=== PATIENT | female | born 1995 | race Caucasian/White ===

== ENCOUNTER → 2019-08-08 | Outpatient (CLI) | payer BC, OTHER ==
[~2019-08-08] MED LIST: CEFP500T4 PO; TRIA16.5 NS
--- NOTE | 2019-08-08 16:19 | Diagnostic Imaging Report ---
INDICATION: Migraine headaches. TECHNIQUE: MRI brain obtained without IV contrast. FINDINGS: Diffusion-weighted images demonstrate no areas of diffusion signal abnormality to suggest acute ischemic change. There are no extra-axial fluid collections. No intracranial hemorrhage. No intracranial mass or mass effect. No midline shift. The ventricles are normal in size and position. There are no focal parenchymal abnormalities in the brain. There is no significant white matter disease. Visualized portions of the paranasal sinuses are clear. There is no orbital lesion seen. Mastoid air cells are well aerated. The brainstem and posterior fossa appear unremarkable. There is no evidence of Chiari malformation. Corpus callosum appears normal. IMPRESSION: Negative MRI brain without contrast. Dictated by: Dictated on workstation # [id number]
== END ==
LOC: RAD 15:29
PROVIDERS: ATTEND Psychiatry & Neurology Neurology
DX: G43.709 Chronic migraine without aura, not intractable, without status migrainosus (principal)
CPT/HCPCS: 70551

== ENCOUNTER → 2021-02-11 | Outpatient (CLI) | payer BC ==
--- NOTE | 2021-02-11 11:04 | Diagnostic Imaging Report ---
INDICATION: survey. TECHNIQUE: Multiple real-time grayscale images were obtained over the gravid uterus. COMPARISON: None FINDINGS: There is a single live fetus in a cephalic presentation. heart rate was recorded at 139 bpm. Placenta is anterior. Amniotic fluid volume is normal. Cervical length is 5.4 cm. kidneys, bladder and stomach are unremarkable. brain is unremarkable. There is a four-chamber heart. There is a three-vessel cord with normal insertion. spine is unremarkable. Biometrical measurements are as follows: Biparietal 4.49 cm, age 19 weeks 5 days. Head circumference 16.64 cm, age 19 weeks 3 days. Abdominal circumference 14.94 cm, age 20 weeks 2 days. Femur length 3.23 cm, age 20 weeks 1 days. Sonographic estimate age: 20 weeks 2 days. Sonographic estimated date of delivery: 07/01/2021. Estimated Weight: 328 gm (+/- 48 gm). LMP percentile: 56%. heart rate: 139 beats per minute. number: 1 of 1. IMPRESSION: Single live IUP 20 weeks 2 days gestational age. Estimated date of confinement sonographically is 07/01/2021. No complicating features are detected. Dictated by: Dictated on workstation # [id number]
== END ==
LOC: RAD 10:00
PROVIDERS: ATTEND Nurse Practitioner Women's Health
DX: Z34.02 Encounter for supervision of normal first pregnancy, second trimester (principal); Z3A.20 20 weeks gestation of pregnancy
CPT/HCPCS: 76805

== ENCOUNTER 2021-07-01 21:24 | Inpatient (IN) | payer BC ==
[~2021-07-01] VITALS: Ht 157 cm; Wt 106.3 kg
[2021-07-01] MEDS ORDERED: PREN-8 PO (21:36)
[2021-07-01] MEDS ORDERED: FERR-84 PO (21:36)
[2021-07-01] MEDS ORDERED: MAGN400T7 PO (21:36)
[2021-07-01 21:53] VITALS: BP 125/80
[2021-07-01 21:56] VITALS: BP 125/80
[2021-07-01 21:59] LABS: BILIRUBIN,URINE NEGATIVE (NEGATIVE); CLARITY,URINE CLEAR; COLOR,URINE YELLOW; GLUCOSE, URINE (UA) NEGATIVE (NEGATIVE); KETONES,URINE NEGATIVE (NEGATIVE); LEUKOCYTE ESTERASE ,URINE TRACE (NEGATIVE); NITRITE,URINE NEGATIVE (NEGATIVE); PROTEIN,URINE NEGATIVE (NEGATIVE)
[2021-07-01 22:15] LABS: BACTERIA,URINE MODERATE /HPF; SQUAMOUS EPITHELIAL CELL,UR RARE /HPF; WBC,URINE 0-2 /HPF
[2021-07-01] MEDS ORDERED: D5 LR IV SOLUTION 1,000 ML IV ONE (22:42)
[2021-07-01] MEDS ORDERED: LIDOCAINE/EPI 2% 1:200,00 (XYLOCAINE) 20 ML VIAL INJ PRN (22:45)
[2021-07-01] MEDS: D5 LR IV SOLUTION 1,000 ML IV SCH (23:00)
[2021-07-01 23:09] LABS: BASOPHILS % (AUTO) 0 % (0-10); EOSINOPHILS # (AUTO) 0.1 10^3/uL (0.0-0.3); EOSINOPHILS % (AUTO) 1 % (0-10); HEMATOCRIT 34 % (35-52); HEMOGLOBIN 11.7 g/dL (11.5-16.0); LYMPHOCYTES # (AUTO) 1.6 10^3/uL (1.0-4.0); LYMPHOCYTES % (AUTO) 15 % (12-44); MEAN CORPUSCULAR HEMOGLOBIN 30 pg (25-34); MEAN CORPUSCULAR HGB CONC 34 g/dL (32-36); MEAN CORPUSCULAR VOLUME 88 fL (80-99); MEAN PLATELET VOLUME 10.4 fL (9.0-12.2); MONOCYTES # (AUTO) 0.6 10^3/uL (0.0-1.0); MONOCYTES % (AUTO) 5 % (0-12); NEUTROPHILS # (AUTO) 8.7 10^3/uL (1.8-7.8); NEUTROPHILS % (AUTO) 79 % (42-75); PLATELET COUNT 198 10^3/uL (130-400)
[2021-07-02] VITALS (80 sets, daily range): BP systolic 98–139; BP diastolic 59–83
[2021-07-02] MEDS ORDERED: fentaNYL 2 mcg/ml BUPIVA 0.125 100 ML ONE (00:26)
[2021-07-02] MEDS ORDERED: diphenhydrAMINE 50 MG/ML INJ (BENADRYL) IV PRN (01:15)
[2021-07-02] MEDS ORDERED: NALOXONE 0.4 MG/ML 1 ML (NARCAN) VIAL IV PRN ×3 (01:15→16:15)
[2021-07-02] MEDS ORDERED: ONDANSETRON 4 MG/2 ML (SDV) Z0FRAN IV PRN (01:15)
[2021-07-02] MEDS ORDERED: LACTATED RINGERS 1,000 ML IV SCH (01:15)
[2021-07-02] MEDS ORDERED: METOCLOPRAMIDE INJ 10 MG/2 ML (REGLAN) IV PRN (01:15)
[2021-07-02] MEDS: EPIDURAL (fentaNYL 2 MCG/ML BUPIVA 0.125%)100 ML BAG EPI SCH ×2 (02:06→09:00)
[2021-07-02] MEDS: CATHETER FLUSH 10 ML SYR IV SCH (06:00)
[2021-07-02] MEDS: D5 LR IV SOLUTION 1,000 ML IV SCH (07:08)
[2021-07-02] MEDS ORDERED: OXYTOCIN PRE-MIX DRIP 500 ML IV ONE (07:57)
[2021-07-02] MEDS ORDERED: LIDOCAINE/EPI 2% 1:200,00 (XYLOCAINE) 10 ML VIAL ONE (08:04)
--- NOTE | 2021-07-02 08:51 | History & Physical-OB ---
OB - Chief Complaint & HPI Date/Time Date of Admission: Date of Admission: Jul 01, 2021 at 10:37 pm Date seen by a Provider: Jul 02, 2021 Time Seen by a Provider: 08:05 Chief Complaint/History OB-Reason for Admission/Chief: Onset of Labor Hx : 1 Hx Para: 0 Expected Date of Delivery: Jul 02, 2021 Gestational Age in Weeks: 39 Gestational Age in Days: 6 Admission Nurse Assessment Rev: Yes History of Labs O pos Antibody neg RI RPR NR HBsAg NR HIV NR GC neg GBS neg Allergies and Home Medications Allergies Coded Allergies: No Known Drug Allergies (Unverified , 07/11/11) Patient Home Medication List Home Medication List Reviewed: Yes Ferrous Sulfate (Iron) 325 Mg Tablet, 325 MG PO DAILY, (Reported) Entered as Reported by: RADHA COLORADO on 07/01/212135 Last Action: New Order Magnesium Oxide (Magnesium Oxide) 400 Mg Tablet, 400 MG PO DAILY, (Reported) Entered as Reported by: RADHA COLORADO on 07/01/212135 Last Action: New Order Vit W-Ca,Fe,FA(<1 mg) ( Formula) 1 Each Tablet, 1 EACH PO DAILY, (Reported) Entered as Reported by: RADHA COLORADO on 07/01/212135 Last Action: New Order Discontinued Medications Cefprozil (Cefzil) 500 Mg Tablet, 1 EACH PO BID Discontinued Reason: No Longer Taking Prescribed by: JOSE PAGE on 07/11/11147 Last Action: Discontinued Triamcinolone Acetonide (Nasacort Aq) 16.5 Gm Ponce, 16.5 GM NS BID Discontinued Reason: No Longer Taking Prescribed by: JOSE PAGE on 07/11/11147 Last Action: Discontinued OB - History Hx of Present Care: Yes Ultrasounds: Normal mid trimester US Obstetrical Complications: None Medical Complications: None Obstetrical History Hx : 1 Hx Para: 0 Hx Total # of Abortions (Spona: 0 Patient Past Medical History n/a Social History/Family History Alcohol Use: Denies Use Recreational Drug Use: No 2nd Hand Smoke Exposure: No OB - Admission Exam Physical Exam Vitals: Vital Signs 07/02/21 07/02/21 05:15 07:00 Temp 36.6 Pulse 83 Resp 18 B/P (MAP) 113/67 (82) Pulse Ox 95 O2 Delivery Room Air HEENT: NCAT Heart: Rhythm Normal Lungs: Clear Abdomen: Gravid Extremities: Normal Reflexes: Normal Cervical Dilatation: 5cm Effacement: 75% Station: -1 Membranes: Intact Heart Rate: 130's Accelerations: Accelerations Present Decelerations: No Decelerations Short Term Variability: Present Food Service Lead Variability: Average (6-25) Contractions on Admission: 6-10 Minutes Apart Intensity: Firm Labs Laboratory Tests Test 07/01/21 21:35 07/01/21 22:45 Range/Units Urine Color YELLOW Urine Clarity CLEAR Urine pH 7.0 5-9 Urine Specific [place] <=1.005 1.016-1.022 Urine Protein NEGATIVE NEGATIVE Urine Glucose (UA) NEGATIVE NEGATIVE Urine Ketones NEGATIVE NEGATIVE Urine Nitrite NEGATIVE NEGATIVE Urine Bilirubin NEGATIVE NEGATIVE Urine Urobilinogen 0.2 < = 1.0 MG/DL Urine Leukocyte Esterase TRACE H NEGATIVE Urine RBC (Auto) 1+ H NEGATIVE Urine RBC NONE /HPF Urine WBC 0-2 /HPF Urine Squamous Epithelial Cells RARE /HPF Urine Renal Epithelial Cells NONE /HPF Urine Crystals NONE /LPF Urine Bacteria MODERATE H /HPF Urine Casts NONE /LPF Urine Mucus NEGATIVE /LPF Urine Culture Indicated NO White Blood Count 11.0 4.3-11.0 10^3/uL Red Blood Count 3.91 3.80-5.11 10^6/uL Hemoglobin 11.7 11.5-16.0 g/dL Hematocrit 34 L 35-52 % Mean Corpuscular Volume 88 80-99 fL Mean Corpuscular Hemoglobin 30 25-34 pg Mean Corpuscular Hemoglobin Concent 34 32-36 g/dL Red Cell Distribution Width 14.7 H 10.0-14.5 % Platelet Count 198 130-400 10^3/uL Mean Platelet Volume 10.4 9.0-12.2 fL Immature Granulocyte % (Auto) 1 % Neutrophils (%) (Auto) 79 H 42-75 % Lymphocytes (%) (Auto) 15 12-44 % Monocytes (%) (Auto) 5 0-12 % Eosinophils (%) (Auto) 1 0-10 % Basophils (%) (Auto) 0 0-10 % Neutrophils # (Auto) 8.7 H 1.8-7.8 10^3/uL Lymphocytes # (Auto) 1.6 1.0-4.0 10^3/uL Monocytes # (Auto) 0.6 0.0-1.0 10^3/uL Eosinophils # (Auto) 0.1 0.0-0.3 10^3/uL Basophils # (Auto) 0.0 0.0-0.1 10^3/uL Immature Granulocyte # (Auto) 0.1 0.0-0.1 10^3/uL OB - Assessment/Plan/Diagnosis Assessment Assessment: active labor Admission Dx 25 yo @ 40 weeks Active labor GBS neg Admission Status: Inpatient Order (span 2 midnights) Reason for Inpatient Admission: Active labor at term Plan Other Plan Contraction pattern has slowed down this am, AROM and Pitocin augmentation started. AFSHIN CORTEZ DO Jul 02, 2021 8:51 am
[2021-07-02] MEDS ORDERED: OXYTOCIN PRE-MIX DRIP 500 ML IV SCH ×2 (09:00→16:15)
[2021-07-02] MEDS ORDERED: IBUPROFEN 600 MG (MOTRIN) TAB PO ONE (16:05)
[2021-07-02] MEDS: IBUPROFEN 600 MG (MOTRIN) TAB PO SCH ×2 (16:09→22:00)
--- NOTE | 2021-07-02 16:11 | OB Labor & Delivery Record ---
L&D History Date of Service Date of Service: Jul 02, 2021 History Expected Date of Delivery: Jul 02, 2021 Gestational Age in Weeks: 39 Hx : 1 Hx Para: 0 Complications Events: Routine care Operative Indications (Cesarea: N/A-Vaginal Delivery Intrapartal Events: None L&D Stage1 Stage One Onset of Labor - Date: Jul 02, 2021 Monitors and Tracing Monitor Mode: Internal Heart Rate: 130 Monitor Decelerations: None Station: 0 Chcf Variability: Average (6-10) Short Term Variability: Present Presentation: Vertex Vital Signs VS - Last 72 Hours, by Label 07/01/21 07/01/21 07/02/21 07/02/21 21:53 21:56 00:52 00:57 Temp 36.4 36.4 Pulse 93 93 100 95 Resp 16 16 18 18 B/P (MAP) 125/80 (95) 132/78 (96) 130/74 (92) Pulse Ox 99 99 98 98 O2 Delivery Room Air Room Air Room Air Room Air 07/02/21 07/02/21 07/02/21 07/02/21 01:00 01:03 01:06 01:09 Pulse 95 97 102 93 Resp 18 18 18 18 B/P (MAP) 117/74 (88) 119/78 (92) 121/78 (92) 114/65 (81) Pulse Ox 98 99 98 98 O2 Delivery Room Air Room Air Room Air Room Air 07/02/21 07/02/21 07/02/21 07/02/21 01:12 01:15 01:20 01:25 Temp 36.7 Pulse 95 93 94 91 Resp 18 18 18 18 B/P (MAP) 109/67 (81) 113/66 (82) 113/71 (85) 116/71 (86) Pulse Ox 98 98 98 98 O2 Delivery Room Air Room Air Room Air Room Air 07/02/21 07/02/21 07/02/21 07/02/21 01:30 01:35 01:40 01:45 Pulse 85 88 83 96 Resp 18 18 18 18 B/P (MAP) 111/66 (81) 111/67 (82) 108/66 (80) 113/69 (84) Pulse Ox 100 96 95 95 O2 Delivery Room Air Room Air Room Air Room Air 1107/02/21 07/02/21 07/02/21 02:00 02:15 02:30 02:45 Pulse 80 84 90 84 Resp 18 18 18 18 B/P (MAP) 116/71 (86) 107/65 (79) 103/64 (77) 99/64 (76) Pulse Ox 98 94 94 94 O2 Delivery Room Air Room Air Room Air Room Air 07/02/21 07/02/21 07/02/21 07/02/21 03:00 03:15 03:30 03:45 Pulse 93 93 87 90 Resp 18 18 18 18 B/P (MAP) 106/67 (80) 102/65 (77) 106/65 (79) 105/67 (80) Pulse Ox 98 98 94 95 O2 Delivery Room Air Room Air Room Air Room Air 07/02/21 07/02/21 07/02/21 07/02/21 04:00 04:15 04:30 04:45 Pulse 97 94 88 77 Resp 18 18 18 18 B/P (MAP) 108/67 (81) 114/71 (85) 114/69 (84) 107/65 (79) Pulse Ox 97 96 95 95 O2 Delivery Room Air Room Air Room Air Room Air 07/02/21 07/02/21 07/02/21 07/02/21 05:00 05:15 05:30 05:45 Temp 36.6 Pulse 85 88 96 81 Resp 18 18 18 18 B/P (MAP) 115/74 (88) 115/73 (87) 121/76 (91) 117/62 (80) Pulse Ox 96 97 98 95 O2 Delivery Room Air Room Air Room Air Room Air 07/02/21 07/02/21 07/02/21 07/02/21 06:00 06:15 06:30 06:45 Pulse 95 82 81 85 Resp 18 18 18 18 B/P (MAP) 119/70 (86) 112/68 (83) 109/68 (82) 112/68 (83) Pulse Ox 96 95 95 95 O2 Delivery Room Air Room Air Room Air Room Air 07/02/21 07/02/21 07/02/21 07/02/21 07:00 07:15 07:30 07:45 Temp 36.4 Pulse 83 87 87 86 Resp 18 18 18 18 B/P (MAP) 113/67 (82) 114/75 (88) 115/68 (84) 113/68 (83) Pulse Ox 95 96 95 95 O2 Delivery Room Air Room Air Room Air Room Air 07/02/21 07/02/21 07/02/21 07/02/21 08:00 08:15 08:30 08:45 Pulse 100 99 101 98 Resp 18 18 18 18 B/P (MAP) 118/79 (92) 117/72 (87) 119/59 (79) 114/68 (83) Pulse Ox 97 98 97 97 O2 Delivery Room Air Room Air Room Air Room Air 07/02/21 07/02/21 07/02/21 07/02/21 09:00 09:15 09:30 09:45 Pulse 100 85 91 102 Resp 18 18 18 18 B/P (MAP) 112/65 (81) 114/65 (81) 121/70 (87) 114/72 (86) Pulse Ox 97 96 97 98 O2 Delivery Room Air Room Air Room Air Room Air 07/02/21 07/02/21 07/02/21 07/02/21 10:00 10:15 10:30 10:45 Temp 36.4 Pulse 96 96 92 111 Resp 18 18 18 18 B/P (MAP) 113/72 (86) 110/69 (83) 113/70 (84) 120/70 (87) Pulse Ox 99 98 97 97 O2 Delivery Room Air Room Air Room Air Room Air 07/02/21 07/02/21 07/02/21 07/02/21 11:00 11:15 11:30 11:45 Pulse 93 101 91 100 Resp 18 18 18 18 B/P (MAP) 113/70 (84) 125/83 (97) 112/72 (85) 111/72 (85) Pulse Ox 97 97 96 95 O2 Delivery Room Air Room Air Room Air Room Air 07/02/21 07/02/21 07/02/21 07/02/21 12:00 12:15 12:30 12:45 Pulse 96 94 101 103 Resp 18 18 18 18 B/P (MAP) 102/66 (78) 117/75 (89) 116/74 (88) 120/66 (84) Pulse Ox 97 98 97 99 O2 Delivery Room Air Room Air Room Air Room Air 07/02/21 07/02/21 07/02/21 07/02/21 13:00 13:15 13:30 13:45 Temp 37.1 Pulse 90 89 90 79 Resp 18 18 18 18 B/P (MAP) 107/64 (78) 98/61 (73) 116/67 (83) 117/73 (88) Pulse Ox 98 97 98 96 O2 Delivery Room Air Room Air Room Air Room Air 07/02/21 07/02/21 07/02/21 14:00 14:15 14:30 Pulse 81 82 87 Resp 18 18 18 B/P (MAP) 118/71 (87) 120/76 (91) 120/76 (91) Pulse Ox 94 97 94 O2 Delivery Room Air Room Air Room Air Rupture of Membranes Spontaneous Ruture of Membrane: No Amniotic Membrane Rupture Time: 08 Amniotic Membrane Fluid Desc.: Meconium Stained Vaginal Bleeding Description: Normal Show Induction/Anesthesia Epidural Cath Placement - Time: 005 Progress/Notes Patient admitted in labor, epidural placed. This AM contractions had spaced. Started on Pitocin augmentation, and AROM performed. L&D Stage2 Stage Two Stage II Date: Jul 02, 2021 Monitors and Tracing Monitor Mode: Internal Heart Rate: 130 Monitor Decelerations: None Grocery Buyer Variability: Moderate (11-25) Short Term Variability: Present Position: Right Occiput Anterior Presentation: Vertex Cord Descript/Complications Cord Vessel Description: 3 Vessels Complications body cord, delivered through Delivery Type Delivery Method: Spontaneous Vaginal Anterior Shoulder: Left Episiotomy/Perineal Laceration Laceraction(s)/Extensions: Yes Episiotomy Description: Right Mediolateral Location Modifier: Left Degree (describe repair) RML repaired using 3-0 and 2-0 rapide in usual fashion. Condition of Infant Delivery 1 minute Comment: 8 5 minute Comment: 9 Notes Live female infant weight pending. Condition of Infant Condition of Infant: Living Exam: No Observed Abnormalities Resuscitation Resuscitation: N/A - Spontaneous Resp L&D Stage3 Stage Three Stage III Date: Jul 02, 2021 Pictocin Pitocin Administration mu/min: 12 Pitocin ml/hr: 12 Pitocin Administration Comment: 30 mu wide open after delivery of placenta Placenta Delivery Placenta Delivery: Spontaneous Delivery Summary Summary Estimated blood loss (mL): 350 Attending at delivery: Afshin Rausch DO Condition of Delivery Examined: Cervix Examined, Uterus Explored Post Hemorrhage: No Condition of Mother stable Condition of (s) stable FENECH,AFSHIN S DO Jul 02, 2021 4:11 pm
[2021-07-02] MEDS ORDERED: BENZOCAINE/MENTHOL (DERMOPLAST) 56 ML CAN TP PRN (16:15)
[2021-07-02] MEDS ORDERED: WITCH HAZEL(TUCKS) 40 EA JAR TOP PRN (16:15)
[2021-07-02] MEDS ORDERED: DIBUCAINE 1% OINTMENT 30 GM TUBE TOP PRN (16:15)
[2021-07-02] MEDS ORDERED: MEASLES,MUMPS,RUBELLA 1 EA INJ SQ ONE (16:15)
[2021-07-02] MEDS ORDERED: TETANUS,DIPTH,PERTUSS P/F (BOOSTRIX) 0.5 ML VIAL IM ONE (16:15)
[2021-07-02] MEDS: DOCUSATE SODIUM 100 MG (COLACE) CAP PO SCH (20:26)
[2021-07-02] MEDS: HYDROcodone/APAP 5 MG/325 MG (LORTAB) TAB PO PRN (20:39)
[2021-07-03 00:20] VITALS: BP 108/59
[2021-07-03] MEDS: HYDROcodone/APAP 5 MG/325 MG (LORTAB) TAB PO PRN ×4 (00:57→21:21)
[2021-07-03 04:30] VITALS: BP 106/56
[2021-07-03] MEDS: IBUPROFEN 600 MG (MOTRIN) TAB PO SCH ×3 (04:32→17:46)
[2021-07-03 05:55] LABS: BASOPHILS % (AUTO) 0 % (0-10); EOSINOPHILS # (AUTO) 0.1 10^3/uL (0.0-0.3); EOSINOPHILS % (AUTO) 1 % (0-10); HEMATOCRIT 30 % (35-52); HEMOGLOBIN 9.8 g/dL (11.5-16.0); LYMPHOCYTES # (AUTO) 1.4 10^3/uL (1.0-4.0); LYMPHOCYTES % (AUTO) 12 % (12-44); MEAN CORPUSCULAR HEMOGLOBIN 30 pg (25-34); MEAN CORPUSCULAR HGB CONC 33 g/dL (32-36); MEAN CORPUSCULAR VOLUME 89 fL (80-99); MEAN PLATELET VOLUME 10.2 fL (9.0-12.2); MONOCYTES # (AUTO) 0.6 10^3/uL (0.0-1.0); MONOCYTES % (AUTO) 5 % (0-12); NEUTROPHILS # (AUTO) 9.5 10^3/uL (1.8-7.8); NEUTROPHILS % (AUTO) 82 % (42-75); PLATELET COUNT 174 10^3/uL (130-400); WHITE BLOOD COUNT 11.6 10^3/uL (4.3-11.0)
--- NOTE | 2021-07-03 09:03 | Anesthesia-Regional Post-Op ---
Regional Patient Condition Mental Status: Alert, Oriented x3 Circulation: Same as Pre-Op Headache: Absent Sensation: Full Recovery Motor Block: Absent Post Op Complications Complications None Follow Up Care/Instructions Patient Instructions None needed. Anesthesia/Patient Condition Patient is doing well, no complaints, stable vital signs, no apparent adverse anesthesia problems. No complications reported per nursing. BEBA ALEMAN CRNA Jul 03, 2021 09:03
[2021-07-03] MEDS: DOCUSATE SODIUM 100 MG (COLACE) CAP PO SCH ×2 (09:07→21:18)
[2021-07-03] MEDS: FERROUS SULF 325 MG (IRON) TAB PO SCH (09:07)
[2021-07-03] MEDS: PRENATAL VITAMIN 1 EA TAB PO SCH (09:08)
[2021-07-03] MEDS: CEPHALEXIN 250 MG (KEFLEX) CAP PO SCH ×4 (09:08→21:18)
--- NOTE | 2021-07-03 09:10 | Postpartum Progress Note ---
Note Note Day # 1 Subjective: Patient is without complaints. Ambulating, voiding. Tolerating a regular diet without nausea or vomiting. Normal lochia. Pain is well controlled with oral pain medications. Pain that started after delivery on left buttocks. Objective: Physical Exam: General - Alert and oriented, no apparent distress Abdomen - Soft, appropriately tender to palpation, non-distended, fundus firm at umbilicus Extremities - no edema, negative Florentino's bilaterally Erythematous area on left buttock that is painful and slightly warm to touch. Assessment: PPD 1 NVD Cellulits of left buttock- no palpable abscess Acute blood loss anemia Plan: Starting on Keflex PO QID, will dc home with med if improvement by tomorrow Routine care. Encourage breast feeding. Encourage ambulation. Ferrous sulfate supplementation. Plan for discharge tomorrow Vitals - Labs Vital Signs - I&O Vital Signs Date Time Temp Pulse Resp B/P (MAP) Pulse Ox O2 Delivery O2 Flow Rate FiO2 07/03/21 04:30 37.1 90 16 106/56 (73) 99 Room Air 07/03/21 00:20 37.0 91 16 108/59 (75) 98 Room Air 07/02/21 20:28 37.7 96 18 115/60 (78) 98 Room Air 07/02/21 18:00 101 18 126/68 (87) Room Air 07/02/21 17:45 103 18 121/71 (88) Room Air 07/02/21 17:30 101 18 117/71 (86) Room Air 07/02/21 17:15 99 18 121/75 (90) Room Air 07/02/21 17:01 96 18 116/74 (88) Room Air 07/02/21 16:45 97 18 127/79 (95) Room Air 07/02/21 16:30 96 18 127/79 (95) Room Air 07/02/21 16:15 98 18 139/81 (100) Room Air 07/02/21 16:00 103 18 130/77 (94) 100 Room Air 07/02/21 15:45 102 18 130/68 (88) 100 Room Air 07/02/21 15:30 36.5 102 18 128/59 (82) Room Air 07/02/21 15:15 108 18 110/64 (79) 100 Room Air 07/02/21 15:00 104 18 127/78 (94) 100 Room Air 07/02/21 14:45 105 18 138/73 (94) 100 Room Air 07/02/21 14:30 87 18 120/76 (91) 94 Room Air 07/02/21 14:15 82 18 120/76 (91) 97 Room Air 07/02/21 14:00 81 18 118/71 (87) 94 Room Air 07/02/21 13:45 79 18 117/73 (88) 96 Room Air 07/02/21 13:30 37.1 90 18 116/67 (83) 98 Room Air 07/02/21 13:15 89 18 98/61 (73) 97 Room Air 07/02/21 13:00 90 18 107/64 (78) 98 Room Air 07/02/21 12:45 103 18 120/66 (84) 99 Room Air 07/02/21 12:30 101 18 116/74 (88) 97 Room Air 07/02/21 12:15 94 18 117/75 (89) 98 Room Air 07/02/21 12:00 96 18 102/66 (78) 97 Room Air 07/02/21 11:45 100 18 111/72 (85) 95 Room Air 07/02/21 11:30 91 18 112/72 (85) 96 Room Air 07/02/21 11:15 101 18 125/83 (97) 97 Room Air 07/02/21 11:00 93 18 113/70 (84) 97 Room Air 07/02/21 10:45 111 18 120/70 (87) 97 Room Air 07/02/21 10:30 92 18 113/70 (84) 97 Room Air 07/02/21 10:15 36.4 96 18 110/69 (83) 98 Room Air 07/02/21 10:00 96 18 113/72 (86) 99 Room Air 07/02/21 09:45 102 18 114/72 (86) 98 Room Air 07/02/21 09:30 91 18 121/70 (87) 97 Room Air 07/02/21 09:15 85 18 114/65 (81) 96 Room Air I & O 07/03/21 07:00 Intake Total 2000 ml Balance 2000 ml Labs Laboratory Tests 07/03/21 05:23: White Blood Count 11.6H, Red Blood Count 3.30L, Hemoglobin 9.8L, Hematocrit 30L, Mean Corpuscular Volume 89, Mean Corpuscular Hemoglobin 30, Mean Corpuscular Hemoglobin Concent 33, Red Cell Distribution Width 15.0H, Platelet Count 174, Mean Platelet Volume 10.2, Immature Granulocyte % (Auto) 0, Neutrophils (%) (Auto) 82H, Lymphocytes (%) (Auto) 12, Monocytes (%) (Auto) 5, Eosinophils (%) (Auto) 1, Basophils (%) (Auto) 0, Neutrophils # (Auto) 9.5H, Lymphocytes # (Auto) 1.4, Monocytes # (Auto) 0.6, Eosinophils # (Auto) 0.1, Basophils # (Auto) 0.0, Immature Granulocyte # (Auto) 0.1 AFSHIN CORTEZ DO Jul 03, 2021 09:10
[2021-07-03 09:12] VITALS: BP 118/76
[2021-07-03 14:31] VITALS: BP 119/75
[2021-07-03] MEDS: CATHETER FLUSH 10 ML SYR IV SCH ×8 (21:18→22:14)
[2021-07-03] MEDS: D5 LR IV SOLUTION 1,000 ML IV SCH ×4 (21:22→22:45)
[2021-07-03 21:26] VITALS: BP 107/68
[2021-07-04 01:13] VITALS: BP 110/66
[2021-07-04] MEDS: CATHETER FLUSH 10 ML SYR IV SCH ×2 (05:33)
[2021-07-04] MEDS: IBUPROFEN 600 MG (MOTRIN) TAB PO SCH ×2 (05:38)
[2021-07-04] MEDS: D5 LR IV SOLUTION 1,000 ML IV SCH (05:54)
[2021-07-04] MEDS: FERROUS SULF 325 MG (IRON) TAB PO SCH (08:23)
[2021-07-04] MEDS: PRENATAL VITAMIN 1 EA TAB PO SCH (08:23)
[2021-07-04] MEDS: CEPHALEXIN 250 MG (KEFLEX) CAP PO SCH (08:23)
[2021-07-04] MEDS: DOCUSATE SODIUM 100 MG (COLACE) CAP PO SCH (08:23)
[2021-07-04 08:24] VITALS: BP 121/77
[2021-07-04] MEDS ORDERED: DOCU100C37 PO (09:58)
[2021-07-04] MEDS ORDERED: CEPH250C PO (09:58)
[2021-07-04] MEDS ORDERED: BENZ78AE5 TP (09:58)
[2021-07-04] MEDS ORDERED: IBUP-844 PO (09:58)
[2021-07-04] MEDS ORDERED: ACHD5005 PO (09:58)
[2021-07-04] MEDS ORDERED: DIBU30OI TOP (09:58)
--- NOTE | 2021-07-04 10:00 | Discharge Inst-Women's Service ---
Discharge Inst-Women's Serv Depart Medication/Instructions New, Converted or Re-Newed RX: Transmitted to Pharmacy Final Diagnosis ppd 2 NVD Problems Reviewed?: Yes Consults/Follow Up Additional Follow Up: Yes Orders/Referrals Dr. Cortez in 6weeks Activity Activity: Activity as Tolerated Driving Instructions: No Driving for 1 Week NO SMOKING: NO SMOKING Nothing Inside Vagina: No Douching, No [place], No Tampons Diet Discharge Diet: No Restrictions Symptoms to Report to : Bleeding Excessive, Pain Increased, Fever Over 101 Degrees F, Vaginal Bleeding Increase, Questions/Concerns For Any Problems or Questions: Contact Your Physician AFSHIN CORTEZ DO Jul 04, 2021 10:00 am
--- NOTE | 2021-07-04 10:01 | Postpartum Progress Note ---
Note Note Day # [] Subjective: Patient is without complaints. Ambulating, voiding. Tolerating a regular diet without nausea or vomiting. Normal lochia. Pain is well controlled with oral pain medications. Objective: Physical Exam: General - Alert and oriented, no apparent distress Abdomen - Soft, appropriately tender to palpation, non-distended, fundus firm at umbilicus Extremities - no edema, negative Florentino's bilaterally Assessment: PPD 2 NVD Area on buttocks much improved today Plan: Routine care. Encourage breast feeding. Encourage ambulation. Ferrous sulfate supplementation. Plan for discharge today Vitals - Labs Vital Signs - I&O Vital Signs Date Time Temp Pulse Resp B/P (MAP) Pulse Ox O2 Delivery O2 Flow Rate FiO2 07/04/21 08:24 37.1 89 18 121/77 (92) 100 Room Air 07/04/21 01:13 82 16 110/66 (81) 100 Room Air 07/03/21 21:26 36.4 94 16 107/68 (81) 99 Room Air 07/03/21 14:31 36.8 103 16 119/75 (90) 99 Room Air AFSHIN CORTEZ DO Jul 04, 2021 10:01 am
== END 2021-07-04 11:20 | disposition home or self-care (01) | DRG 806 ==
LOC: WSo 21:24 → LDRP 21:24 → WSo 22:37 → LDRP 22:37
PROVIDERS: ADMIT Obstetrics & Gynecology; ATTEND Obstetrics & Gynecology
PROC: 10E0XZZ Delivery of Products of Conception, External Approach (ICD-10-PCS; principal; 2021-07-02)
PROC: 0W8NXZZ Division of Female Perineum, External Approach (ICD-10-PCS; 2021-07-02)
DX: O77.0 Labor and delivery complicated by meconium in amniotic fluid (principal); L03.317 Cellulitis of buttock; Z37.0 Single live birth; D62 Acute posthemorrhagic anemia; O99.835 Other infection carrier state complicating the puerperium; Z3A.39 39 weeks gestation of pregnancy; O69.82X0 Labor and delivery complicated by other cord entanglement, without compression, not applicable or unspecified; O90.81 Anemia of the puerperium
CPT/HCPCS: 36415; 81000; 85025; 86850; 86900; 86901; 99212

== ENCOUNTER → 2023-03-31 | Outpatient (CLI) | payer BC ==
[~2023-03-31] MED LIST changes: +ACHD5005 PO; +BENZ78AE5 TP; +CEPH250C PO; +DIBU30OI TOP; +DOCU100C37 PO; +FERR-84 PO; +IBUP-844 PO; +MAGN400T7 PO; +PREN-8 PO
--- NOTE | 2023-03-31 12:58 | Diagnostic Imaging Report ---
INDICATION: anatomy survey TECHNIQUE: Multiple real-time grayscale images were obtained over the gravid uterus. COMPARISON: None FINDINGS: The cervix measures approximately 5.5 cm in length. Fetus is in transverse lie with head to maternal left. Placenta is posterior in position and there is no previa. NORMA is normal at 12.51 cm. anatomy survey is performed and the following structures are visualized and normal: Cerebral ventricles, cerebellum, cisterna magna, stomach, four-chamber heart, kidneys, urinary bladder, umbilical cord insertion, spine, three-vessel cord. facial structures are not well seen on this exam. Biometrical measurements are as follows: Biparietal 4.69 cm, age 20 weeks 2 days. Head circumference 17.51 cm, age 20 weeks 1 days. Abdominal circumference 15.79 cm, age 21 weeks 0 days. Femur length 3.36 cm, age 20 weeks 4 days. Sonographic estimate age: 20 weeks 4 days. Sonographic estimated date of delivery: 08/14/23. Estimated Weight: 368 gm (+/- 54 gm). LMP percentile: 67%. heart rate: 146 beats per minute. number: 1 of 1. IMPRESSION: 1. Single live intrauterine has no anomaly within the visualized anatomy. Dictated by: Dictated on workstation # [id number]
== END ==
LOC: RAD 10:00
PROVIDERS: ATTEND Nurse Practitioner Women's Health
DX: Z34.81 Encounter for supervision of other normal pregnancy, first trimester (principal)
CPT/HCPCS: 76805